=== PATIENT | female | born 1980 | race Two or more races ===

== ENCOUNTER 2017-10-06 09:20 | Emergency (ER) | payer OTHER ==
[~2017-10-06] VITALS: Ht 165.1 cm; Wt 65.8 kg
[2017-10-06] MEDS ORDERED: [UNRECOGNIZED DRUG - OTHER] (09:42)
== END 2017-10-06 13:27 | disposition home or self-care (01) ==
LOC: ER 09:20
DX: R19.7 Diarrhea, unspecified (principal); D50.9 Iron deficiency anemia, unspecified

== ENCOUNTER 2018-06-15 09:39 | Inpatient (IN) | payer OTHER ==
[~2018-06-15] VITALS: Ht 165.1 cm; Wt 64.9 kg
[~2018-06-15 09:39] MED LIST: [UNRECOGNIZED DRUG - OTHER]
--- NOTE | 2018-06-15 10:07 | NUR ---
SE RECIBE PTE ALERTA Y OREITNADA X3 LA CUAL REFIERE VENIR POR DOLOR ABDOMINAL Y SANGRADO RECTAL. PTE REFIERE PADECER COLITIS ULCERATIVA. PTE MENCIONA HURST GRASTRO ES LUIS ELIS. SE MIDEN S/V APTE Y SE COLOCA EN AREA DE OBSERVACION.
--- NOTE | 2018-06-15 10:48 | NUR ---
PACIENTE ALERTA Y ORIENTADA X3, CON BUEN PATRON RESPIRATORIO Y SIGNOS VITALES ESTABLES, NO REFIERE DOLOR AL MOMENTO. SE ABRE VENA EN BRAZO KELVIN PATENTE Y KARINA DE EDEMA CON ANGIO #18 SE COLOCA A BAJAR UN 0.9NSS AT 150ML/HR. SE TICO MUESTRAS BAJOS MEDIDAS ASEPTICAS CMP, CRP, CBC, SR Y OCCULT BLOOD. SE HARRISON TRANQUILA EN CAMA Y CON BARANDAS ELEVADAS.
[2018-06-16] MEDS ORDERED: ASACOL HD800 MG PO (08:00)
[2018-06-25] MEDS ORDERED: PROTONIX40 MG PO (10:52)
[2018-06-25] MEDS ORDERED: INTESTINEX680 M1 PO (10:52)
[2018-06-25] MEDS ORDERED: PREDNISONE20 MG PO (10:52)
[2018-06-25] MEDS ORDERED: ZANTAC150 MG PO (10:52)
== END 2018-06-25 12:18 | disposition home or self-care (01) | DRG 386 ==
LOC: ER 09:39 → MEDI 16:17
PROVIDERS: ADMIT Internal Medicine
PROC: BW21Y0Z Computerized Tomography (CT Scan) of Abdomen and Pelvis using Other Contrast, Unenhanced and Enhanced (ICD-10-PCS; principal; 2018-06-15)
PROC: 30233N1 Transfusion of Nonautologous Red Blood Cells into Peripheral Vein, Percutaneous Approach (ICD-10-PCS; 2018-06-18)
DX: K51.00 Ulcerative (chronic) pancolitis without complications (principal); K62.5 Hemorrhage of anus and rectum; N39.0 Urinary tract infection, site not specified; D62 Acute posthemorrhagic anemia; D50.8 Other iron deficiency anemias; B95.1 Streptococcus, group B, as the cause of diseases classified elsewhere

== ENCOUNTER 2019-03-21 17:49 | Emergency (ER) | payer OTHER ==
[~2019-03-21] VITALS: Ht 165.1 cm; Wt 65.8 kg
[~2019-03-21 17:49] MED LIST changes: +ASACOL HD800 MG PO; +INTESTINEX680 M1 PO; +PREDNISONE20 MG PO; +PROTONIX40 MG PO; +ZANTAC150 MG PO
[2019-03-21] MEDS ORDERED: HUMIRA40 MG/0.2 SUBCUTANEO (18:16)
== END 2019-03-21 22:26 | disposition home or self-care (01) ==
LOC: ER 17:49
DX: R19.7 Diarrhea, unspecified (principal)

== ENCOUNTER 2019-03-24 13:39 | Inpatient (IN) | payer OTHER ==
[~2019-03-24] VITALS: Ht 165.1 cm; Wt 61.2 kg
[~2019-03-24 13:39] MED LIST changes: +HUMIRA40 MG/0.2 SUBCUTANEO
[2019-03-30] MEDS ORDERED: PANTOPRAZOLE SO40 MG PO (12:16)
[2019-03-30] MEDS ORDERED: FOLIC ACID1 MG PO (12:16)
[2019-03-30] MEDS ORDERED: DELTASONE20 MG PO (12:19)
[2019-03-30] MEDS ORDERED: INTESTINEX680 M1 PO (12:19)
[2019-03-30] MEDS ORDERED: Neurin-Sl Tablet Sl SL (12:20)
== END 2019-03-30 12:55 | disposition home or self-care (01) | DRG 386 ==
LOC: ER 13:39 → SURH 19:07 → SEC-K 19:07 → SURH 03-25 00:24
PROVIDERS: ADMIT Internal Medicine
PROC: 8E0ZXY6 Isolation (ICD-10-PCS; principal; 2019-03-24)
PROC: BW21ZZZ Computerized Tomography (CT Scan) of Abdomen and Pelvis (ICD-10-PCS; 2019-03-25)
PROC: 30233N1 Transfusion of Nonautologous Red Blood Cells into Peripheral Vein, Percutaneous Approach (ICD-10-PCS; 2019-03-27)
DX: K51.818 Other ulcerative colitis with other complication (principal); K62.5 Hemorrhage of anus and rectum; D50.0 Iron deficiency anemia secondary to blood loss (chronic)

== ENCOUNTER 2019-11-07 17:29 | Inpatient (IN) | payer OTHER ==
[~2019-11-07] VITALS: Ht 165.1 cm; Wt 72.6 kg
[~2019-11-07 17:29] MED LIST changes: +DELTASONE20 MG PO; +FOLIC ACID1 MG PO; +Neurin-Sl Tablet Sl SL; +PANTOPRAZOLE SO40 MG PO
--- NOTE | 2019-11-07 17:41 | NUR ---
PTE ALERTA Y ORIENTADA X 3 ESFERAS QUIEN REFIERE SANGRADO RECTAL DESDE HACE 1 SEMANA Y DOLOR ABDOMINAL DESDE HACE 3 VELASQUEZ.PTE REFIERE PADECER DE COLITIS ULCERATIVA,PTE MIRTA CBC CON HGB 9.5.REFIERE DOLOR EN ARITCULACIONES Y DIARREAS.
[2019-11-07] MEDS ORDERED: ENTYVIO300 MG (17:44)
[2019-11-10] MEDS ORDERED: PREDNISONE10 M2 PO (09:52)
[2019-11-10] MEDS ORDERED: PANTOPRAZOLE SO40 MG PO (09:53)
[2019-11-10] MEDS ORDERED: RESTORIL30 MG PO (09:53)
[2019-11-10] MEDS ORDERED: AMPHETAMINE SAL20 M1 PO (09:53)
[2019-11-13] MEDS ORDERED: PREDNISONE20 MG PO (10:36)
== END 2019-11-13 11:39 | disposition home or self-care (01) | DRG 386 ==
LOC: ER 17:29 → MEDJ 19:58 → MEDI 19:58
PROVIDERS: ADMIT Internal Medicine; ATTEND Internal Medicine
DX: K51.00 Ulcerative (chronic) pancolitis without complications (principal); K62.5 Hemorrhage of anus and rectum; D50.0 Iron deficiency anemia secondary to blood loss (chronic)

== ENCOUNTER 2020-07-31 17:26 | Emergency (ER) | payer OTHER ==
[~2020-07-31] VITALS: Ht 165.1 cm; Wt 72.6 kg
[~2020-07-31 17:26] MED LIST changes: +AMPHETAMINE SAL20 M1 PO; +ENTYVIO300 MG; +PREDNISONE10 M2 PO; +RESTORIL30 MG PO
[2020-07-31] MEDS ORDERED: RAYOS5 MG PO (17:33)
[2020-07-31] MEDS ORDERED: STELARA130 MG/26 IV (17:34)
== END 2020-07-31 22:47 | disposition home or self-care (01) ==
LOC: ER 17:26
DX: K52.89 Other specified noninfective gastroenteritis and colitis (principal); D64.89 Other specified anemias; K50.90 Crohn's disease, unspecified, without complications